=== PATIENT | male | born 1990 | race Caucasian/White ===

== ENCOUNTER 2017-04-12 18:37 | Emergency (ER) | payer BC ==
[2017-04-12] MEDS ORDERED: Lidocaine 2% 20 ML MDV INJECT ONE (19:00)
[2017-04-12 19:02] VITALS: BP 145/76
[2017-04-12] MEDS ORDERED: Diphtheria,Pertussis(Acell),Tetanus Vaccine 0.5 ML SDV IM ONE (19:11)
--- NOTE | 2017-04-12 19:18 | EDM.PDOC ---
ED HPI GENERAL MEDICAL PROBLEM - General Chief Complaint: Laceration Stated Complaint: FINGER LACERATION Time Seen by Provider: 04/12/17 18:55 Source of Information: Reports: Patient History Limitations: Reports: No Limitations - History of Present Illness INITIAL COMMENTS - FREE TEXT/NARRATIVE: 27 yo male cut a finger on a piece of farm equipment just before arrival. Is uncertain about the timing of his last tetanus. 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(s) Left Upper Hand Pain Score (Numeric/FACES): 5 - Related Data Allergies Allergy/AdvReac Type Severity Reaction Status Date / Time NSAIDS (Non-Steroidal Allergy Cannot Verified 04/12/17 18:48 Anti-Inflamma Remember Sulfa (Sulfonamide Allergy Cannot Verified 04/12/17 18:48 Antibiotics) Remember Home Meds: Home Meds NK [No Known Home Meds] 04/12/17 [History] Past Medical History - Past Surgical History Musculoskeletal Surgical History: Reports: Other (See Below) Other Musculoskeletal Surgeries/Procedures:: payam foot surgury Social & Family History - Family History Family Medical History: Noncontributory - Tobacco Use Smoking Status *Q: Current Every Day Smoker Years of Tobacco use: 5 Packs/Tins Daily: 0.1 - Caffeine Use Caffeine Use: Reports: Soda - Recreational Drug Use Recreational Drug Use: No ED ROS GENERAL - Review of Systems Review Of Systems: See Below Constitutional: Reports: No Symptoms Musculoskeletal: Reports: No Symptoms Skin: Reports: Wound (L 5th finger) Neurological: Reports: No Symptoms ED EXAM, SKIN/RASH Exam: See Below Exam Limited By: No Limitations General Appearance: Alert, WD/WN, No Apparent Distress Extremities: Other (L 5th finger laceration.) Neurological: Alert, Oriented, CN II-XII Intact, Normal Cognition, No Motor/ Sensory Deficits Psychiatric: Normal Affect, Normal Mood Skin: Warm, Intact, Normal Color, No Rash, Wound/Incision Location, Skin: Upper Extremity, Left Characteristics: Other (flap on distal pad, mendoza surface) Associated features: Tenderness Lymphatic: No Adenopathy ED SKIN PROCEDURES - Laceration/Wound Repair Left Upper Anterior Distal Finger Lac/Wound length In cm: 3.5 (flap configuration) Appearance: Subcutaneous, Mildly Contaminated Distal NVT: Neuro & Vascular Intact, No Tendon Injury Anesthetic Type: Digital Local Anesthesia - Lidocaine (Xylocaine): 2% Plain Local Anesthetic Volume: Other (8) Skin Prep: Saline Exploration/Debridement/Repair: Wound Explored, No Foreign Material Found Closed with: Sutures Suture Size: other (6-0) Suture Type: Prolene Drain Placement: No Sterile Dressing Applied: Nurse Tetanus Status Addressed: Yes Complications: No Course - Vital Signs Last Recorded V/S: Last Vital Signs Temp 36.6 C 04/12/17 18:48 Pulse 80 04/12/17 18:48 Resp 18 04/12/17 18:48 BP 145/76 H 04/12/17 18:48 Pulse Ox 98 04/12/17 18:48 - Orders/Labs/Meds Orders: Active Orders 24 hr Category Date Time Status Vaccines to be Administered [RC] PER UNIT ROUTINE Care 04/12/17 19:11 Active Meds: Medications Discontinued Medications Generic Name Dose Route Start Last Admin Trade Name Freq PRN Reason Stop Dose Admin Diphtheria/Tetanus/Acell Pertussis 0.5 ml 04/12/17 19:11 Adacel IM 04/12/17 19:12 .ONCE ONE Departure - Departure Time of Disposition: 19:22 Disposition: Home, Self-Care 01 Condition: Good Clinical Impression: Finger laceration Qualifiers: Encounter type: initial encounter Finger: little finger Damage to nail status: without damage Foreign body presence: without foreign body Laterality: left Qualified Code(s): S61.217A - Laceration without foreign body of left little finger without damage to nail, initial encounter - Discharge Information Referrals: PCP,None [Primary Care Provider] - Forms: ED Department Discharge Additional Instructions: Clean wound twice daily with soap and water. Dry. Apply Bacitracin ointment and a new dressing. Keep wound clean for 3 days. Take acetaminophen as needed for pain relief. Recheck for signs of infection. Stitches out in 10 days, call for a clinic appt. - My Orders Last 24 Hours: My Active Orders 04/12/17 19:11 Vaccines to be Administered [RC] PER UNIT ROUTINE - Assessment/Plan Last 24 Hours: My Active Orders 04/12/17 19:11 Vaccines to be Administered [RC] PER UNIT ROUTINE
== END 2017-04-12 19:21 | disposition home or self-care (01) ==
LOC: FB.ED 18:37
DX: S61.217A Laceration without foreign body of left little finger without damage to nail, initial encounter (principal); F17.210 Nicotine dependence, cigarettes, uncomplicated; Z88.2 Allergy status to sulfonamides; Z88.8 Allergy status to other drugs, medicaments and biological substances; W30.9XXA Contact with unspecified agricultural machinery, initial encounter
CPT/HCPCS: 12002; 90471; 90715; 99283; A4217; 12001